=== PATIENT | female | born 1995 | race Hispanic/Latino ===

== ENCOUNTER 2018-11-27 14:49 | Emergency (ER) | payer MEDICAID | END 2018-11-27 16:40 | disposition home or self-care (01) | LOC: EDH 14:49 | DX: F41.1 Generalized anxiety disorder (principal); F32.9 Major depressive disorder, single episode, unspecified; Z72.0 Tobacco use ==

== ENCOUNTER 2019-01-10 16:52 | Emergency (ER) | payer MEDICAID, OTHER | END 2019-01-10 17:16 | disposition home or self-care (01) | LOC: EDH 16:52 | DX: F41.9 Anxiety disorder, unspecified (principal); R53.1 Weakness; F32.9 Major depressive disorder, single episode, unspecified | CPT/HCPCS: 99281 ==

== ENCOUNTER 2021-05-20 04:00 | Emergency (ER) | payer SELFPAY ==
[~2021-05-20] VITALS: Ht 170.2 cm; Wt 101.6 kg
[2021-05-20 05:33] VITALS: BP 115/80
== END 2021-05-20 05:48 | disposition home or self-care (01) ==
LOC: EDH 04:00
DX: F41.9 Anxiety disorder, unspecified (principal); R06.00 Dyspnea, unspecified; F19.10 Other psychoactive substance abuse, uncomplicated
CPT/HCPCS: 71045

== ENCOUNTER 2021-12-08 16:04 | Emergency (ER) | payer OTHER ==
[~2021-12-08] VITALS: Ht 170.2 cm; Wt 86.2 kg
[2021-12-08] MEDS ORDERED: LORAZEPAM 2 MG/ML 1 ML VIAL IVP SCH (16:30)
[2021-12-08] MEDS ORDERED: KETOROLAC 15MG/ML VIAL (15MG/ML) IV SCH (16:30)
[2021-12-08] MEDS ORDERED: 0.9%NACL 1000ML 1,000 ML IV SCH (16:30)
[2021-12-08 16:46] LABS: BASOPHILS % (AUTO) 0.3 % (0.0-5.0); EOSINOPHILS % (AUTO) 1.4 % (0.0-8.0); HEMATOCRIT 39.4 % (36-48); LYMPHOCYTES % (AUTO) 16.1 % (21.0-51.0); MEAN CORPUSCULAR HEMOGLOBIN 29.1 pg (27.0-33.0); MEAN CORPUSCULAR HGB CONC 32.5 g/dL (32.0-36.0); MEAN CORPUSCULAR VOLUME 89.5 fL (79-99); MONOCYTES % (AUTO) 5.3 % (3.0-13.0); NEUTROPHILS % (AUTO) 76.4 % (40.0-77.0); PLATELET COUNT (AUTO) 261 K/uL (130-400)
[2021-12-08 16:51] LABS: CARBON DIOXIDE 29 mmol/L (21-32); CHLORIDE 102 mmol/L (101-111); CREATININE 0.7 mg/dL (0.5-1.5); GLOMERULAR FILTR. RATE CALC 109 mL/min (>60); GLUCOSE,RANDOM 129 mg/dL (70-105); POTASSIUM 3.4 mmol/L (3.5-5.1); SODIUM SERUM 142 mmol/L (136-145); UREA NITROGEN, BLOOD 7 mg/dL (7-18)
[2021-12-08 16:51] LABS: APPEARANCE,URINE Cloudy (CLEAR); BILIRUBIN,URINE Negative (NEGATIVE); COLOR,URINE Dark Yellow (YELLOW); GLUCOSE, URINE (UA) Negative (NEGATIVE); KETONES,URINE Trace mg/dL (NEGATIVE); LEUKOCYTE ESTERASE ,URINE Trace (NEGATIVE); NITRATE,URINE Negative (NEGATIVE); OCCULT BLOOD,URINE Negative (NEGATIVE); PROTEIN,URINE POS 1+ mg/dL (NEGATIVE)
[2021-12-08 16:56] LABS: ALANINE AMINOTRANSFERASE 57 U/L (12-78); ALBUMIN 3.3 g/dL (3.5-5.0); ALCOHOL, BLOOD < 3 mg/dL (0-10); ASPARTATE AMINOTRANSFERASE 26 U/L (10-37); BILIRUBIN,TOTAL 0.4 mg/dL (0.2-1.0); TOTAL PROTEIN, SERUM 7.7 g/dL (6.0-8.3)
[2021-12-08 16:58] LABS: AMPHET/METH SCREEN,URINE NEGATIVE (NEGATIVE); BARBITURATE SCREEN, URINE NEGATIVE (NEGATIVE); BENZODIAZEPINES SCREEN,URINE POSITIVE (NEGATIVE); CANNABINOID SCREEN,URINE POSITIVE (NEGATIVE); COCAINE SCREEN,URINE NEGATIVE (NEGATIVE); OPIATE SCREEN,URINE NEGATIVE (NEGATIVE); PHENCYCLIDINE SCREEN,URINE NEGATIVE (NEGATIVE)
[2021-12-08 17:01] LABS: BACTERIA,URINE Few /HPF (None Seen); RBC,URINE 0-1 /HPF (0-1)
[2021-12-08 17:02] LABS: MUCUS,URINE Few LPF (None Seen); SQUAMOUS EPITHELIAL CELL,UR Moderate /HPF (0-2)
[2021-12-08] MEDS ORDERED: HYD25 PO (17:46)
[2021-12-08 18:18] VITALS: BP 118/80
== END 2021-12-08 18:26 | disposition home or self-care (01) ==
LOC: EDH 16:04
DX: F41.9 Anxiety disorder, unspecified (principal); E86.0 Dehydration; F19.10 Other psychoactive substance abuse, uncomplicated; F17.200 Nicotine dependence, unspecified, uncomplicated; Z79.1 Long term (current) use of non-steroidal anti-inflammatories (NSAID)
CPT/HCPCS: 36415; 80053; 80305; 81001; 84703; 85025; 96361; 96374; 96375; 99284; J1885; J2060; J7030

== ENCOUNTER 2023-09-23 00:20 | Emergency (ER) | payer OTHER ==
[~2023-09-23] VITALS: Ht 170.2 cm; Wt 113.4 kg
[~2023-09-23 00:20] MED LIST: HYD25 PO
[2023-09-23] MEDS ORDERED: IBUP-2077 PO (02:17)
[2023-09-23] MEDS: MORPHINE 2 MG SYG ONE (02:29)
[2023-09-23] MEDS: ONDANSETRON 4MG INJ ONE (02:29)
[2023-09-23] MEDS: ONDANSETRON 4MG INJ IVP ONE (02:30)
[2023-09-23] MEDS: MORPHINE 2 MG SYG IVP ONE (02:30)
[2023-09-23 02:49] VITALS: BP 123/80; PULSE 80; RESP 20; O2SAT 100
== END 2023-09-23 02:51 | disposition home or self-care (01) ==
LOC: EDH 00:20
DX: S82.891A Other fracture of right lower leg, initial encounter for closed fracture (principal); W01.0XXA Fall on same level from slipping, tripping and stumbling without subsequent striking against object, initial encounter; Y93.89 Activity, other specified; Y92.89 Other specified places as the place of occurrence of the external cause; Y99.8 Other external cause status
CPT/HCPCS: 99284; 29515; 73610; 73590; J2270; J2405